=== PATIENT | female | born 1995 | race Caucasian/White ===

== ENCOUNTER 2017-05-23 17:03 | Emergency (ER) | payer BC, OTHER ==
[2017-05-23 17:30] VITALS: BMI 30.4
[2017-05-23 17:36] VITALS: TEMP 99.7; O2SAT 100
[2017-05-23] MEDS ORDERED: Sodium Chloride 0.9% 1,000 ML IV STA (17:54)
--- NOTE | 2017-05-23 17:59 | ED PDOC ---
Arrival/HPI <Morris Garcia - Last Filed: 05/23/17 18:14> <Yemi Amor - Last Filed: 05/23/17 20:55> - General Chief Complaint: Dizziness/Lightheaded Time Seen by Provider: 05/23/17 17:42 - History of Present Illness Narrative History of Present Illness (Text): 05/23/17 17:56 21 yo female, presents with feeling weak/dizzy, have leg swelling, gonzales, blurry vision and sharp cp since wednesday. pt states no abdominal pain, n/v/d, urinary changes, no gonzales. no fevers. (Morris Garcia) Past Medical History - Provider Review Nursing Documentation Reviewed: Yes - Infectious Disease Hx of Infectious Diseases: None - Tetanus Immunization Tetanus Immunization: Unknown - Past Medical History Past Medical History: No Previous - Cardiac Other/Comment: Hx of chest belcher and rapid heart rate per patient - Pulmonary Hx Respiratory Disorders: No - Neurological Hx Neurological Disorder: No - HEENT Hx HEENT Disorder: No - Renal Hx Renal Disorder: No - Endocrine/Metabolic Hx Endocrine Disorders: No - Hematological/Oncological Hx Blood Disorders: No - Integumentary Hx Dermatological Disorder: No - Musculoskeletal/Rheumatological Hx Musculoskeletal Disorders: No - Gastrointestinal Hx Gastrointestinal Disorders: No - Genitourinary/Gynecological Hx Genitourinary Disorders: No - Psychiatric Hx Anxiety: Yes Hx Depression: No Hx Emotional Abuse: No Hx Physical Abuse: No Hx Substance Use: No - Past Surgical History Past Surgical History: No Previous - Anesthesia Hx Anesthesia: No - Suicidal Assessment Feels Threatened In Home Enviroment: No <Morris Garcia - Last Filed: 05/23/17 18:14> Family/Social History - Physician Review Nursing Documentation Reviewed: Yes Family/Social History: Unknown Family HX Smoking Status: Never Smoked Hx Alcohol Use: No Hx Substance Use: No Hx Substance Use Treatment: No <Morris Garcia - Last Filed: 05/23/17 18:14> Allergies/Home Meds <Morris Garcia - Last Filed: 05/23/17 18:14> <Yemi Amor - Last Filed: 05/23/17 20:55> Allergies/Adverse Reactions: Allergies banana Allergy (Verified 05/23/17 17:31) RASH codeine Allergy (Verified 05/23/17 17:31) RASH Penicillins Allergy (Verified 05/23/17 17:30) RASH Home Medications: Home Meds Medication Instructions Recorded Confirmed No Known Home Med 05/23/17 05/23/17 Review of Systems - Review of Systems Constitutional: Normal Eyes: Vision Changes ENT: Normal Respiratory: Normal Cardiovascular: Chest Pain Gastrointestinal: Normal Genitourinary Female: Normal Musculoskeletal: Other ((+)leg swelling) Skin: Normal Neurological: Headache Endocrine: Normal Hemo/Lymphatic: Normal Psychiatric: Normal <Morris Garcia - Last Filed: 05/23/17 18:14> Physical Exam Temperature: Afebrile Blood Pressure: Normal Pulse: Regular Respiratory Rate: Normal Appearance: Positive for: Well-Appearing, Non-Toxic, Comfortable Pain Distress: None Mental Status: Positive for: Alert and Oriented X 3 - Systems Exam Head: Present: Atraumatic, Normocephalic Pupils: Present: PERRL Extroacular Muscles: Present: EOMI Conjunctiva: Present: Normal Mouth: Present: Moist Mucous Membranes Neck: Present: Normal Range of Motion Respiratory/Chest: Present: Clear to Auscultation, Good Air Exchange. No: Respiratory Distress, Accessory Muscle Use Cardiovascular: Present: Regular Rate and Rhythm, Normal S1, S2. No: Murmurs Abdomen: Present: Normal Bowel Sounds. No: Tenderness, Distention, Peritoneal Signs Back: Present: Normal Inspection Upper Extremity: Present: Normal Inspection. No: Cyanosis, Edema Lower Extremity: Present: Normal Inspection, Swelling ((+)b/l), Neurovascularly Intact. No: Edema Neurological: Present: GCS=15, CN II-XII Intact, Speech Normal Skin: Present: Warm, Dry, Normal Color. No: Rashes Psychiatric: Present: Alert, Oriented x 3, Normal Insight, Normal Concentration <Morris Garcia - Last Filed: 05/23/17 18:14> Medical Decision Making <Morris Garcia - Last Filed: 05/23/17 18:14> - Lab Interpretations I have reviewed the lab results: Yes <Yemi Amor - Last Filed: 05/23/17 20:55> ED Course and Treatment: 05/23/17 17:58 will r/o metabolic, infectious, dvt, uti, intrcranial pathology- labs imaging pending ekg nsr [address] twave changes perc neg. 05/23/17 18:14 (Morris Garcia) 05/23/17 19:14 Case signed out to me by Dr. Garcia, pending imaging, reevaluation and disposition. 05/23/17 19:35 CT Head Without Intravenous Contrast: Dictated and Authenticated by: Jose Daniel Puckett MD IMPRESSION: There are no acute concerning abnormalities. 05/23/17 19:46 Chest x-ray read by me shows no pneumothorax, no pneumonia, no cardiomegaly, no infiltrates. 05/23/17 20:52 pt currently in no distress and denies complaints states she has no chest pain, sob, lerma. Denies gonzales, denies blurry vision. No focal neurological deficits on reexamination states she feels comfortable being dc'd home with outpatient f/u Pt states she understands to return to the ER right away for new or worsening symptoms or for inability to f/u with PMD or specialist as instructed. Patient states that she fully agrees with and understands discharge instructions. States that she agrees with the plan and disposition. Verbalized and repeated discharge instructions and plan. I have given the patient opportunity to ask any additional questions. (Yemi Amor) - Lab Interpretations Lab Results: 05/23/17 18:35 05/23/17 18:35 Lab Results 05/23/17 18:50: Lactate Dehydrogenase 303 L, Total Creatine Kinase 104, Troponin I < 0.01 05/23/17 18:35: Sodium 140, Potassium 3.7, Chloride 105, Carbon Dioxide 25, Anion Gap 14, BUN 16, Creatinine 0.8, Est GFR ( Amer) > 60, Est GFR (Non- Af Amer) > 60, Random Glucose 95, Calcium 9.4, Total Bilirubin 0.3, AST 28, ALT 33, Alkaline Phosphatase 62, Total Protein 7.6, Albumin 4.2, Globulin 3.4, Albumin/Globulin Ratio 1.2 05/23/17 18:35: PT 11.2, INR 1.04, APTT 29.7 05/23/17 18:35: WBC 9.8, RBC 4.45, Hgb 11.9 L, Hct 36.4, MCV 81.8, MCH 26.7, MCHC 32.7, RDW 13.9, Plt Count 242, MPV 10.1, Gran % 69.2 H, Lymph % (Auto) 24.4 , [place] % (Auto) 4.4, Eos % (Auto) 1.7, Baso % (Auto) 0.3, Gran # 6.78 H, Lymph # 2.4, [place] # 0.4, Eos # 0.2, Baso # 0.03 05/23/17 18:00: Urine Color Yellow, Urine Appearance Clear, Urine pH 7.0, Ur Specific [place] 1.020, Urine Protein Negative, Urine Glucose (UA) Negative, Urine Ketones Negative, Urine Blood Negative, Urine Nitrate Negative, Urine Bilirubin Negative, Urine Urobilinogen 0.2, Ur Leukocyte Esterase Negative, Urine HCG, Qual Negative - RAD Interpretation Radiology Orders: 05/23/17 17:53 CHEST PORTABLE [RAD] Stat 05/23/17 17:54 DUPLEX LOWER EXTRM VEIN BILAT [US] Stat 05/23/17 18:38 HEAD W/O CONTRAST [CT] Stat - Medication Orders Current Medication Orders: Discontinued Medications Acetaminophen (Tylenol 325mg Tab) 975 mg PO STAT STA Stop: 05/23/17 17:54 Last Admin: 05/23/17 18:40 Dose: 975 mg Re-Assess: DAVID Pain/Vitals Document 05/23/17 19:40 RD (Rec: 05/23/17 19:[address]) Pain Reassessment Is This A Pain ReAssessment? Yes Sleep Is patient sleeping during reassessment? No Presence of Pain Presence of Pain Yes Location Pain Location Body Site Chest Sodium Chloride (Sodium Chloride 0.9%) 1,000 mls @ 999 mls/hr IV .Q1H1M STA Stop: 05/23/17 18:54 Last Admin: 05/23/17 18:33 Dose: 999 mls/hr Ketorolac Tromethamine (Toradol) 30 mg IVP STAT STA Stop: 05/23/17 19:55 Last Admin: 05/23/17 20:15 Dose: 30 mg <Morris Garcia - Last Filed: 05/23/17 18:14> - Scribe Statement The provider has reviewed the documentation as recorded by the Scribe <Yemi Amor - Last Filed: 05/23/17 20:55> - Scribe Statement Musa Pratt Provider Scribe Attestation: All medical record entries made by the Scribe were at my direction and personally dictated by me. I have reviewed the chart and agree that the record accurately reflects my personal performance of the history, physical exam, medical decision making, and the department course for this patient. I have also personally directed, reviewed, and agree with the discharge instructions and disposition. (Yemi Amor) Disposition/Present on Arrival - Present on Arrival History of DVT/PE: No History of Uncontrolled Diabetes: No Urinary Catheter: No History of Decub. Ulcer: No History Surgical Site Infection Following: None <Morris Garcia - Last Filed: 05/23/17 18:14> - Present on Arrival Any Indicators Present on Arrival: No - Disposition Have Diagnosis and Disposition been Completed?: Yes Disposition Time: 20:54 Patient Plan: Discharge <Yemi Amor - Last Filed: 05/23/17 20:55> - Disposition Diagnosis: Chest pain Disposition: HOME/ ROUTINE Condition: GOOD Discharge Instructions (ExitCare): Chest Pain (ED), General Headache (ED), Diplopia (ED) Additional Instructions: PLEASE RETURN TO THE EMERGENCY DEPARTMENT FOR NEW OR WORSENING SYMPTOMS. RETURN RIGHT AWAY IF YOU CANNOT FOLLOW UP WITH YOUR PRIMARY CARE DOCTOR, CLINIC, OR SPECIALIST IN 1-2 DAYS. Referrals: Pacheco Wooten MD [Primary Care Provider] - Follow up with primary Lianet Anders MD [Staff Provider] - Follow up with primary Dmitriy Domingo MD [Staff Provider] - Follow up with primary
[2017-05-23 18:19] LABS: URINE BILIRUBIN NEGATIVE (NEGATIVE); URINE BLOOD NEGATIVE (NEGATIVE); URINE GLUCOSE (UA) NEGATIVE (NEGATIVE); URINE KETONE NEGATIVE (NEGATIVE); URINE LEUKOCYTE ESTERASE NEGATIVE Leu/uL (NEGATIVE); URINE PROTEIN NEGATIVE mg/dL (<30 mg/dL); URINE UROBILINOGEN 0.2 E.U./dL (<1 E.U./dL)
[2017-05-23 18:32] LABS: URINE APPEARANCE CLEAR (CLEAR); URINE COLOR YELLOW (YELLOW)
[2017-05-23 18:38] LABS: ADD MANUAL DIFF? NO
[2017-05-23 18:41] LABS: BASO # 0.03 K/mm3 (0.0-2.0); BASO % 0.3 % (0.0-3.0); EOS # 0.2 (0.0-0.7); EOS % 1.7 % (1.5-5.0); GRAN # 6.78 (1.4-6.5); GRAN % 69.2 % (50.0-68.0); HEMATOCRIT 36.4 % (36.0-48.0); LYMPH # 2.4 (1.2-3.4); LYMPH % 24.4 % (22.0-35.0); MEAN CELL VOLUME 81.8 fL (80.0-105.0); MEAN CORPUSCULAR HEMOGLOBIN 26.7 pg (25.0-35.0); MEAN CORPUSCULAR HGB CONC 32.7 g/dl (31.0-37.0); MEAN PLATELET VOLUME 10.1 fl (7.0-11.0); MONO # 0.4 (0.1-0.6); MONO % 4.4 % (1.0-6.0); PLATELET COUNT 242 10^3/uL (120.0-450.0); RED CELL DISTRIBUTION WIDTH 13.9 % (11.5-14.5); WHITE BLOOD COUNT 9.8 10^3/ul (4.5-11.0)
[2017-05-23 18:50] LABS: ALB/GLOB RATIO 1.2 (1.1-1.8); ALKALINE PHOSPHATASE 62 U/L (38-133); ALT/SGPT 33 U/L (7-56); AST/SGOT 28 U/L (15-39); BILIRUBIN,TOTAL 0.3 mg/dL (0.2-1.3); BLOOD UREA NITROGEN 16 mg/dL (7-21); CALCIUM 9.4 mg/dL (8.4-10.5); CARBON DIOXIDE 25 mmol/L (21-33); CHLORIDE 105 mmol/L (98-107); GFR AFRICAN-AMERICAN > 60; GLUCOSE,RANDOM 95 mg/dL (70-110); POTASSIUM 3.7 mmol/L (3.6-5.0); SODIUM 140 mmol/L (132-148); TOTAL PROTEIN 7.6 g/dL (5.8-8.3)
[2017-05-23 18:54] LABS: INR 1.04 (0.93-1.08); PARTIAL THROMBOPLASTIN TIME 29.7 Seconds (23.7-30.8)
--- NOTE | 2017-05-23 19:06 | US ---
HISTORY: Leg pain and swelling. Evaluate for DVT PHYSICIAN(S): Omid Rose MD. TECHNIQUE: Duplex sonography and color-flow Doppler with graded compression were used to evaluate the deep venous systems of both lower extremities. The exam is limited by body habitus and edema bilaterally. The tibial veins are not well seen FINDINGS: The visualized deep venous systems of both lower extremities are sonographically normal and compressible. Normal wave forms and augmentation are seen. There is no sonographic evidence for deep venous thrombosis in the visualized segments of both lower extremities. IMPRESSION: No sonographic evidence for deep venous thrombosis in the visualized segments of both lower extremities. The tibial veins are not well seen.
--- NOTE | 2017-05-23 19:15 | ED PDOC ---
Physical Exam Vital Signs Reviewed: Yes Vital Signs Temp Pulse Resp BP Pulse Ox 05/23/17 17:31 99.7 F H 93 H 15 128/85 100 Temperature: Afebrile Blood Pressure: Normal Pulse: Regular Respiratory Rate: Normal Appearance: Positive for: Well-Appearing, Non-Toxic, Comfortable Pain Distress: None Mental Status: Positive for: Alert and Oriented X 3 Medical Decision Making ED Course and Treatment: 05/23/17 19:14 Case signed out to me by Dr. Garcia, pending imaging, reevaluation and disposition. - Lab Interpretations Lab Results: 05/23/17 18:35 05/23/17 18:35 Lab Results 05/23/17 18:35: Sodium 140, Potassium 3.7, Chloride 105, Carbon Dioxide 25, Anion Gap 14, BUN 16, Creatinine 0.8, Est GFR ( Amer) > 60, Est GFR (Non- Af Amer) > 60, Random Glucose 95, Calcium 9.4, Total Bilirubin 0.3, AST 28, ALT 33, Alkaline Phosphatase 62, Total Protein 7.6, Albumin 4.2, Globulin 3.4, Albumin/Globulin Ratio 1.2 05/23/17 18:35: PT 11.2, INR 1.04, APTT 29.7 05/23/17 18:35: WBC 9.8, RBC 4.45, Hgb 11.9 L, Hct 36.4, MCV 81.8, MCH 26.7, MCHC 32.7, RDW 13.9, Plt Count 242, MPV 10.1, Gran % 69.2 H, Lymph % (Auto) 24.4 , [place] % (Auto) 4.4, Eos % (Auto) 1.7, Baso % (Auto) 0.3, Gran # 6.78 H, Lymph # 2.4, [place] # 0.4, Eos # 0.2, Baso # 0.03 05/23/17 18:00: Urine Color Yellow, Urine Appearance Clear, Urine pH 7.0, Ur Specific [place] 1.020, Urine Protein Negative, Urine Glucose (UA) Negative, Urine Ketones Negative, Urine Blood Negative, Urine Nitrate Negative, Urine Bilirubin Negative, Urine Urobilinogen 0.2, Ur Leukocyte Esterase Negative, Urine HCG, Qual Negative I have reviewed the lab results: Yes - RAD Interpretation Radiology Orders: 05/23/17 17:53 CHEST PORTABLE [RAD] Stat 05/23/17 17:54 DUPLEX LOWER EXTRM VEIN BILAT [US] Stat 05/23/17 18:38 HEAD W/O CONTRAST [CT] Stat - Medication Orders Current Medication Orders: Discontinued Medications Acetaminophen (Tylenol 325mg Tab) 975 mg PO STAT STA Stop: 05/23/17 17:54 Last Admin: 05/23/17 18:40 Dose: 975 mg Sodium Chloride (Sodium Chloride 0.9%) 1,000 mls @ 999 mls/hr IV .Q1H1M STA Stop: 05/23/17 18:54 Last Admin: 05/23/17 18:33 Dose: 999 mls/hr - Scribe Statement The provider has reviewed the documentation as recorded by the Paige Pratt Provider Scribe Attestation: All medical record entries made by the Scribe were at my direction and personally dictated by me. I have reviewed the chart and agree that the record accurately reflects my personal performance of the history, physical exam, medical decision making, and the department course for this patient. I have also personally directed, reviewed, and agree with the discharge instructions and disposition. Disposition/Present on Arrival - Present on Arrival History of DVT/PE: No History of Uncontrolled Diabetes: No Urinary Catheter: No History of Decub. Ulcer: No History Surgical Site Infection Following: None - Disposition Referrals: Pacheco Wooten MD [Primary Care Provider] - Follow up with primary
[2017-05-23 19:28] VITALS: RESP 18
[2017-05-23 20:19] LABS: TROPONIN I < 0.01 ng/mL
[2017-05-23 21:08] VITALS: BP 128/76; PULSE 77
--- NOTE | 2017-05-24 07:26 | CT ---
PROCEDURE: CT HEAD WITHOUT CONTRAST. HISTORY: blurry vision COMPARISON: None available. TECHNIQUE: Axial computed tomography images were obtained through the head/brain without intravenous contrast. Radiation dose: Total exam DLP = 774 mGy-cm. This CT exam was performed using one or more of the following dose reduction techniques: Automated exposure control, adjustment of the mA and/or kV according to patient size, and/or use of iterative reconstruction technique. FINDINGS: HEMORRHAGE: No intracranial hemorrhage. BRAIN: No mass effect or edema. No atrophy or chronic microvascular ischemic changes. VENTRICLES: Unremarkable. No hydrocephalus. CALVARIUM: Unremarkable. PARANASAL SINUSES: Unremarkable as visualized. No significant inflammatory changes. MASTOID AIR CELLS: Unremarkable as visualized. No inflammatory changes. OTHER FINDINGS: None. IMPRESSION: Normal CT of the Head.
--- NOTE | 2017-05-24 09:32 | RAD ---
HISTORY: cp COMPARISON: 04/13/2016 FINDINGS: LUNGS: No active pulmonary disease. PLEURA: No significant pleural effusion identified, no pneumothorax apparent. CARDIOVASCULAR: Normal. OSSEOUS STRUCTURES: No significant abnormalities. VISUALIZED UPPER ABDOMEN: Normal. OTHER FINDINGS: None. IMPRESSION: No active disease.
--- NOTE | 2017-05-24 14:26 | CARD ---
APPROVED REPORT EKG Measurement Heart [id number] CT [id number] <Conclusion> Normal sinus rhythm Prolonged QT Abnormal ECG
== END 2017-05-23 21:08 | disposition home or self-care (01) ==
LOC: ED 17:03
DX: R07.9 Chest pain, unspecified (principal)
CPT/HCPCS: 70450; 71010; 80053; 81003; 82550; 83615; 84484; 84703; 85025; 85610; 85730; 93005; 93970; 96361; 96374; 99284; J1885; J7040